=== PATIENT | female | born 1960 | race Caucasian/White ===

== ENCOUNTER 2016-09-03 12:47 | Emergency (ER) | payer MEDICAID ==
--- NOTE | 2016-09-03 15:27 | RAD ---
PROCEDURE: Radiographs of the Lumbar Spine. HISTORY: Back pain COMPARISON: No prior. FINDINGS: BONES: There is normal alignment of the lumbar vertebral bodies. Lumbar lordosis is maintained. Vertebral bodies are normal in height. There is no acute fracture, spondylolysis or spondylolisthesis. DISC SPACES: There is mild multilevel degenerative disc disease, worse at L5-S1. OTHER FINDINGS: There are no pathologic soft tissue calcifications. Both sacroiliac joints are normal. IMPRESSION: No acute fracture, spondylolysis or spondylolisthesis. Mild multilevel degenerative disc disease, worse at L5-S1.
--- NOTE | 2016-09-03 16:14 | C.PDOC ---
History Of Present Illness A 55 y/o female c/o lower back pain and a throbbing headache to the left side after a mechanical fall that occurred at a friend's house 4 days ago. Pt states falling on her back and hitting her head during the fall. Pt reports mild dizziness and bruising to the left upper arm, but denies LOC, nausea, vomiting, neck pain, weakness, numbness, anticoagulant use, fever, or chills. Time Seen by Provider: 09/03/16 13:10 Chief Complaint (Nursing): Back Pain History Per: Patient History/Exam Limitations: no limitations Onset/Duration Of Symptoms: Days Current Symptoms Are (Timing): Still Present Quality Of Discomfort: "Pain" (Lower back), Other (Throbbing headache) Severity: Mild Associated Symptoms: denies: New Weakness, New Numbness Recent travel outside of the [place]: No Additional History Per: Patient Past Medical History Reviewed: Historical Data, Nursing Documentation, Vital Signs Vital Signs: Last Vital Signs Temp 98 F 09/03/16 17:18 Pulse 70 09/03/16 17:18 Resp 18 09/03/16 17:18 BP 110/77 09/03/16 17:18 Pulse Ox 96 09/03/16 17:18 - Medical History PMH: Kidney Stones Family History: States: Unknown Family Hx - Social History Hx Tobacco Use: No Hx Alcohol Use: No Hx Substance Use: No - Immunization History Hx Tetanus Toxoid Vaccination: No Hx Influenza Vaccination: No Review Of Systems Except As Marked, All Systems Reviewed And Found Negative. Constitutional: Negative for: Fever, Chills Gastrointestinal: Negative for: Nausea, Vomiting Musculoskeletal: Positive for: Back Pain (Lower back pain). Negative for: Neck Pain Skin: Positive for: Bruising (Left upper bruising) Neurological: Positive for: Headache (Left sided headache), Dizziness. Negative for: Weakness, Numbness, Other (LOC) Physical Exam - Physical Exam Appears: Well, Non-toxic, No Acute Distress Skin: Warm, Dry, Ecchymosis (3cm area of ecchymosis to the lateral mid left arm) Head: Atraumatic, Normacephalic, No Tenderness, No Swelling, No Abrasion Eye(s): bilateral: Normal Inspection, PERRL, EOMI Ear(s): Bilateral: Normal Nose: Normal Oral Mucosa: Moist Throat: Normal, No Erythema, No Exudate Neck: Normal, Normal ROM, Trachea Midline, No Midline Cervical Tenderness, No Paracervical Tenderness, Supple Chest: No Deformity, No Tenderness Cardiovascular: Rhythm Regular, No Murmur Respiratory: Normal Breath Sounds, No Decreased Breath Sounds, No Accessory Muscle Use, No Rales, No Rhonchi, No Stridor, No Wheezing Gastrointestinal/Abdominal: Normal Exam, Soft, No Tenderness, No Rebound Back: Normal Inspection, No CVA Tenderness, Vertebral Tenderness (Mild tenderness lumbar spine), No Decreased ROM, No Paraspinal Tenderness Extremity: Normal ROM, No Tenderness, No Deformity, No Swelling Extremity: Bilateral: Normal ROM Neurological/Psych: Oriented x3, Normal Speech, Normal Cognition, Normal Cranial Nerves, Normal Motor, Normal Sensation, Other (No focal deficit) Gait: Steady ED Course And Treatment O2 Sat by Pulse Oximetry: 97 (RA) Pulse Ox Interpretation: Normal - Other Rad XR L spine X-Ray: Read By Radiologist Interpretation: FINDINGS: BONES: There is normal alignment of the lumbar vertebral bodies. Lumbar lordosis is maintained. Vertebral bodies are normal in height. There is no acute fracture, spondylolysis or spondylolisthesis. DISC SPACES: There is mild multilevel degenerative disc disease, worse at L5- S1. OTHER FINDINGS: There are no pathologic soft tissue calcifications. Both sacroiliac joints are normal. IMPRESSION: No acute fracture, spondylolysis or spondylolisthesis. Mild multilevel degenerative disc disease, worse at L5-S1. - CT Scan/US CT head Other Rad Studies (CT/US): Read By Radiologist CT/US Interpretation: FINDINGS: HEMORRHAGE: No intracranial hemorrhage. BRAIN : No mass effect or edema. No atrophy or chronic microvascular ischemic changes. VENTRICLES: Unremarkable. No hydrocephalus. CALVARIUM: Unremarkable. PARANASAL SINUSES: Unremarkable as visualized. No significant inflammatory changes. MASTOID AIR CELLS: Unremarkable as visualized. No inflammatory changes. OTHER FINDINGS: None. IMPRESSION: Normal CT of the Head. Medical Decision Making Medical Decision Making: Impression: 55 y/o female c/o lower back pain and a throbbing headache to the left side after a mechanical fall 4 days ago. Plans: -CT Head -XRAY LS -Reglan -Tylenol -Reassess XRAY LS shows no acute fractures. CT head results still pending at this. On re- evaluation, patient is sitting comfortably, reports improvement of her headache. Has no additional complaints at this time. Repeat neuro exam shows no focal findings. CT head results are (-). Results d/w the patient. Pt is in no acute distress at this time. Pt was given Rx for pain meds and was instructed to follow up with PMD if symptoms persists. Disposition - Disposition Referrals: [facility] [Outside] Joyce Scruggs MD [Staff Provider] - Disposition: HOME/ ROUTINE Disposition Time: 17:10 Condition: STABLE Prescriptions: Cyclobenzaprine [Cyclobenzaprine HCl] 10 mg PO TID #15 tab Naproxen 500 mg PO BID #30 tab Instructions: Head Injury (ED), Acute Low Back Pain (ED) Forms: Work Excuse Print Language: IVORIAN - Clinical Impression Clinical Impression: Contusion of back, Head injury - PA / RN CASE MANAGER HOSPICE / Resident Statement MD/DO has reviewed & agrees with the documentation as recorded. - Scribe Statement The provider has reviewed the documentation as recorded by the Scribe Geraldo rice All medical record entries made by the Raisaibcandace were at my direction and personally dictated by me. I have reviewed the chart and agree that the record accurately reflects my personal performance of the history, physical exam, medical decision making, and the department course for this patient. I have also personally directed, reviewed, and agree with the discharge instructions and disposition.
--- NOTE | 2016-09-03 16:15 | CT ---
PROCEDURE: CT HEAD WITHOUT CONTRAST. HISTORY: headache, s/p fall COMPARISON: None available. TECHNIQUE: Axial computed tomography images were obtained through the head/brain without intravenous contrast. Radiation dose: Total exam DLP = 797 mGy-cm. This CT exam was performed using one or more of the following dose reduction techniques: Automated exposure control, adjustment of the mA and/or kV according to patient size, and/or use of iterative reconstruction technique. FINDINGS: HEMORRHAGE: No intracranial hemorrhage. BRAIN: No mass effect or edema. No atrophy or chronic microvascular ischemic changes. VENTRICLES: Unremarkable. No hydrocephalus. CALVARIUM: Unremarkable. PARANASAL SINUSES: Unremarkable as visualized. No significant inflammatory changes. MASTOID AIR CELLS: Unremarkable as visualized. No inflammatory changes. OTHER FINDINGS: None. IMPRESSION: Normal CT of the Head.
[2016-09-03 17:19] VITALS: BP 110/77; PULSE 70; RESP 18; TEMP 98
[2016-09-03 18:03] VITALS: O2SAT 97
== END 2016-09-03 17:18 | disposition home or self-care (01) ==
LOC: C.ER 12:47
DX: S30.0XXA Contusion of lower back and pelvis, initial encounter (principal); S09.90XA Unspecified injury of head, initial encounter; W18.30XA Fall on same level, unspecified, initial encounter; Y92.009 Unspecified place in unspecified non-institutional (private) residence as the place of occurrence of the external cause